=== PATIENT | female | born 2000 | race Caucasian/White ===

== ENCOUNTER 2023-09-11 21:32 | Emergency (ER) | payer MEDICARE, SELFPAY ==
[2023-09-11 21:34] VITALS: BP 135/81; PULSE 95; RESP 16; TEMP 36.7; O2SAT 99; BMI 23.2
--- NOTE | 2023-09-11 21:48 | ED_ITS ---
Discharge Plan Disposition Patient Disposition: Home, Self-Care Condition: Good Prescriptions Prescriptions: New clindamycin HCl 300 mg capsule 300 mg PO TID 10 Days Qty: 30 0RF ondansetron 4 mg tablet,disintegrating 4 mg PO Q8H PRN (Reason: nausea and vomiting) 4 Days Qty: 12 0RF naproxen 500 mg tablet 500 mg PO BID Qty: 20 0RF oxycodone 5 mg tablet 5 mg PO Q8H PRN (Reason: pain) Qty: 10 0RF Activity Restrictions/Add. Instructions Additional Instructions/Restrictions: You were evaluated in the emergency department today. Please follow-up closely with a dentist right away. They will definitively manage your teeth. 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 I am also prescribing prescription for pain medication. Do not drive or operate heavy machinery while taking narcotic pain medication. You may also take Tylenol in addition to these medications at home as needed for pain. Return to the emergency department for new or worsening symptoms. Clinical Impressions Clinical Impression: Poor dentition, Pain, dental Stand Alone Forms Stand Alone Forms: Work/School Release Instructions Patient Instructions: DI for Dental Pain Discharge ED Provider: Liz Israel [facility] Adult HPI General Chief complaint: Dental/Oral Stated complaint: Toothache Time Seen by Provider: 09/11/23 21:35 Mode of Arrival: Ambulatory Source of Information: Patient Limitations: No Limitations Description of Symptoms (Recalled from ER Triage Doc. by RN): pt c/o lt upper dental pain x 2 weeks. pt has completed a course of antibodics and denitist appointment was canceled History of Present Illness HPI narrative: This patient is a 23-year-old female with a history of a reported history presenting to the emergency department for evaluation with concern for dental pain x 2 weeks. Patient states that he started completed 1 course of antibiotics awaiting a dentist appointment, however her dentist had to reschedule her appointment. She states she is having persistent pain in the left upper tooth with nausea and chills. No fevers, no vomiting, no trismus, no drooling, and no difficulty swallowing. No other concerns noted at this time. Related Data Previous Rx's Medication Instructions Recorded clindamycin HCl 300 mg capsule 300 mg PO TID 10 days #30 caps 09/11/23 naproxen 500 mg tablet 500 mg PO BID #20 tabs 09/11/23 ondansetron 4 mg disintegrating 4 mg PO Q8H PRN nausea and 09/11/23 tablet vomiting 4 days #12 tabs oxycodone 5 mg tablet 5 mg PO Q8H PRN pain #10 tabs 09/11/23 Allergies Allergy/AdvReac Type Severity Reaction Status Date / Time Penicillins Allergy Verified 09/11/23 21:39 [facility] Disclaimer: The information contained in this section may have been updated after the patient was seen, as this information can be updated by other users. Social History Smoking Status: Current every day smoker alcohol intake: never current occupational status: employed Travel in the last 8 weeks: None ROS Obtained: Yes All systems reviewed & no additional complaints except as documented Physical Exam General General appearance: alert and in no apparent distress Head Head exam: atraumatic and normocephalic Eye Eye exam: Present normal appearance, PERRL and EOMI ENT ENT exam: Present mucous membranes moist, normal external ear exam and other (Extremely poor dentition with advanced dental decay and multiple dental caries. No obvious drainable abscesses. No trismus or drooling. No sublingual swelling or tongue elevation.); Absent normal oropharynx Neck Neck exam: Present normal inspection, full ROM and trachea midline; Absent tenderness Chest Chest inspection: Present normal inspection and symmetric chest wall rise; Absent tenderness Respiratory Respiratory exam: Present normal lung sounds bilaterally; Absent respiratory distress, wheezes, stridor or accessory muscle use Cardiovascular Cardiovascular exam: Present regular rate and normal rhythm Abdominal Exam Abdominal exam: Present soft; Absent distention, tenderness or guarding Extremities Exam Extremities exam: Present normal inspection, full ROM and normal capillary refill; Absent tenderness or edema Back Exam Back exam: Present normal inspection and full ROM; Absent tenderness Neurological Exam Neurological exam: Present alert, oriented X3, CN II-XII intact and normal gait; Absent motor sensory deficit Psychiatric Psychiatric exam: Present normal affect and normal mood Skin Skin exam: Present warm and dry Medical Decision Making Medical Records Medical records reviewed: Yes I reviewed the patient's medical records. Corey Inquiry Pt receiving controlled substance: Yes Corey was queried for this patient: Yes Risks and benefits of using a controlled substance: were discussed with pt by me Vital Signs: 09/11/23 21:34 09/11/23 22:04 Temperature 98.1 F 98.1 F Temperature Source Oral Oral Pulse Rate 91 H Pulse Rate [Right] 95 H Respiratory Rate 16 16 Blood Pressure 135/79 Blood Pressure [Right Arm] 135/81 Blood Pressure Mean [Right Arm] 99 02 Sat by Pulse Oximetry 99 Lab Data Lab results reviewed: Yes I reviewed the patient's lab results. Orders (Tests/Meds): ED MEDICATIONS Discontinued Medications Generic Name Dose Route Start Last Admin Trade Name Carter PRN Reason Stop Dose Admin Acetaminophen 1,000 mg 09/11/23 21:44 09/11/23 21:53 Acetaminophen 500mg Tab PO 09/11/23 21:45 1,000 mg ONCE ONE Administration Benzocaine/Butamben/Tetracaine HCl 1 gm 09/11/23 21:49 09/11/23 21:54 Tetracaine/Benzocaine/Butamben 56 Gm [place] TP 09/11/23 21:50 1 gm ONCE ONE Administration Clindamycin HCl 300 mg 09/11/23 21:44 09/11/23 21:54 Clindamycin 150mg Capsule PO 09/11/23 21:45 300 mg ONCE ONE Administration Ibuprofen 800 mg 09/11/23 21:44 09/11/23 21:53 Ibuprofen 400 Mg Tablet PO 09/11/23 21:45 800 mg ONCE ONE Administration Lidocaine HCl 15 ml 09/11/23 21:45 09/11/23 21:54 Lidocaine 2% Viscous Elina 15ml Udc PO 09/11/23 21:46 15 ml ONCE ONE Administration Lidocaine HCl 15 ml 09/11/23 21:49 Lidocaine 2% Viscous Elina 15ml Udc PO 09/11/23 21:50 ONCE ONE Ondansetron HCl 4 mg 09/11/23 21:44 09/11/23 21:53 Ondansetron 4mg Odt SL 09/11/23 21:45 4 mg ONCE ONE Administration Medical Decision Narrative: In summary, this patient is a 23-year-old female presenting to the Emergency Department for evaluation of dental pain. Differential diagnoses considered include but are not limited to dental abscess, dental caries, dental fracture. Ruling out the most morbid conditions drove assessment. On exam, the patient has severely poor dentition with multiple dental caries and extensive dental decay. No appreciable drainable abscesses, no trismus, drooling, sublingual swelling, tongue elevation, or other concerns. At this time, feel that she is appropriate for discharge home with prescription for antibiotics, pain control, and close follow-up with dentistry. She is penicillin allergic, so she was given prescription for clindamycin. She is given prescriptions for naproxen, Zofran, and oxycodone as well. Strict return precautions were given, and the patient was given instructions for close [employer] DATA [employer]OCIATE follow-up with dentistry and discharged after all questions were answered. Critical Care Critical Care Time Critical Care Time: No
[2023-09-11] MEDS: ONDANSETRON 4MG ODT 4 MG SL (21:53)
[2023-09-11] MEDS: IBUPROFEN 400 MG TABLET 800 MG PO (21:53)
[2023-09-11] MEDS: ACETAMINOPHEN 500MG TAB 1000 MG PO (21:53)
[2023-09-11] MEDS: TETRACAINE/BENZOCAINE/BUTAMBEN 56 GM SPRAY TP (21:54)
[2023-09-11] MEDS: LIDOCAINE 2% VISCOUS SOL 15ML UDC 15 ML PO (21:54)
[2023-09-11] MEDS: CLINDAMYCIN 150MG CAPSULE 300 MG PO (21:54)
[2023-09-11 22:04] VITALS: BP 135/79; PULSE 91; RESP 16; TEMP 36.7; O2SAT 99
== END 2023-09-11 22:05 | disposition home or self-care (01) ==
PROVIDERS: Emergency Provider Emergency Medicine
DX: K08.89 Other specified disorders of teeth and supporting structures (principal); F17.210 Nicotine dependence, cigarettes, uncomplicated
CPT/HCPCS: 99283